=== PATIENT | female | born 1990 | race Caucasian/White ===

== ENCOUNTER 2019-07-11 16:53 | Emergency (ER) | payer BC ==
[~2019-07-11] VITALS: Ht 160 cm; Wt 67.6 kg
[2019-07-11] MEDS ORDERED: bcp (17:02)
[2019-07-11] MEDS ORDERED: ADACEL/BOOSTRIX VACCINE (DIPHTH/PERTUSS/ACELL/TETANUS)0.5ML SYR (90715) IM ONE (18:00)
[2019-07-11] MEDS ORDERED: BACI500O21 TOP (18:37)
[2019-07-11 18:46] VITALS: BP 121/79
== END 2019-07-11 18:47 | disposition home or self-care (01) ==
LOC: M ED 16:53
DX: S61.212A Laceration without foreign body of right middle finger without damage to nail, initial encounter (principal); S61.214A Laceration without foreign body of right ring finger without damage to nail, initial encounter; W26.8XXA Contact with other sharp object(s), not elsewhere classified, initial encounter; Y92.018 Other place in single-family (private) house as the place of occurrence of the external cause

== ENCOUNTER → 2019-08-18 | Outpatient (REF) | payer BC ==
[~2019-08-18] MED LIST: BACI500O21 TOP; bcp
== END ==
LOC: M LAB REF 12:21
PROVIDERS: ATTEND Physician Assistant
DX: N39.0 Urinary tract infection, site not specified (principal)